=== PATIENT | male | born 1990 | race Caucasian/White ===

== ENCOUNTER → 2017-09-16 | Outpatient (CLI) | payer BC ==
[~2017-09-16] MED LIST: NORCO 325 MG-51 TAB PO; ZOFRAN ODT4 MG PO
== END ==
LOC: COL.RAD 07:30
DX: M47.812 Spondylosis without myelopathy or radiculopathy, cervical region (principal)

== ENCOUNTER → 2017-10-04 | Outpatient (CLI) | payer BC | LOC: MHCPAIN 08:25 | DX: G89.29 Other chronic pain (principal); M54.12 Radiculopathy, cervical region; M47.812 Spondylosis without myelopathy or radiculopathy, cervical region; R51 Headache; F17.220 Nicotine dependence, chewing tobacco, uncomplicated | CPT/HCPCS: G0463 ==

== ENCOUNTER → 2017-11-23 | Outpatient (CLI) | payer BC | LOC: MHCPAIN 09:55 | DX: G89.29 Other chronic pain (principal); M50.121 Cervical disc disorder at C4-C5 level with radiculopathy; F17.220 Nicotine dependence, chewing tobacco, uncomplicated | CPT/HCPCS: G0463 ==

== ENCOUNTER → 2018-01-09 | Outpatient (CLI) | payer BC | LOC: MHCPAIN 11:18 | DX: G89.29 Other chronic pain (principal); M50.321 Other cervical disc degeneration at C4-C5 level; M54.12 Radiculopathy, cervical region; R51 Headache | CPT/HCPCS: G0463 ==

== ENCOUNTER 2018-01-16 11:30 | Outpatient (RCR) | payer BC | END 2018-01-19 | disposition home or self-care (01) | LOC: MKS.ESL.PT | DX: M54.12 Radiculopathy, cervical region (principal); M47.812 Spondylosis without myelopathy or radiculopathy, cervical region; G89.29 Other chronic pain; R51 Headache; Z88.0 Allergy status to penicillin ==

== ENCOUNTER → 2018-02-02 | Outpatient (CLI) | payer BC | LOC: MHCPAIN 11:01 | DX: M54.12 Radiculopathy, cervical region (principal) | CPT/HCPCS: J1100; J2250; J3010; Q9967 ==

== ENCOUNTER → 2018-02-08 | Outpatient (CLI) | payer BC | LOC: MHCPAIN 14:42 | DX: M54.12 Radiculopathy, cervical region (principal) | CPT/HCPCS: J1100; J2250; J3010; Q9967 ==

== ENCOUNTER → 2018-03-08 | Outpatient (CLI) | payer BC | LOC: MHCPAIN 08:42 | DX: G89.29 Other chronic pain (principal); M50.90 Cervical disc disorder, unspecified, unspecified cervical region; M54.12 Radiculopathy, cervical region; R51 Headache | CPT/HCPCS: G0463 ==

== ENCOUNTER → 2018-06-07 | Outpatient (CLI) | payer BC | LOC: MHCPAIN 08:17 | DX: G89.29 Other chronic pain (principal); M50.321 Other cervical disc degeneration at C4-C5 level; M54.12 Radiculopathy, cervical region | CPT/HCPCS: G0463 ==

== ENCOUNTER → 2019-10-25 | Outpatient (CLI) | payer BC | LOC: COL.RAD 10-23 07:30 | DX: G43.909 Migraine, unspecified, not intractable, without status migrainosus (principal) ==

== ENCOUNTER 2021-11-23 15:44 | Emergency (ER) | payer BC ==
[~2021-11-23] VITALS: Ht 162.6 cm; Wt 95.5 kg
[2021-11-23 16:23] VITALS: BP 118/70; TEMP 99.5
[2021-11-23] MEDS ORDERED: EMGALITY120 MG/1 M SQ (16:53)
[2021-11-23] MEDS ORDERED: FLEXERIL 1010 MG/TAB PO (16:53)
[2021-11-23 17:04] LABS: BASO % 0.3 % (0.0-2.0); EOS % 0.1 % (0.0-4.0); GRAN # 8.9 K/mm3 (1.4-6.5); GRAN % 84.8 % (42.2-75.2); HEMATOCRIT 47.8 % (42.0-52.0); HEMOGLOBIN 17.6 g/dl (13.5-18.0); LYMPH # 0.7 K/mm3 (1.2-3.4); LYMPH % 6.8 % (20.0-51.0); MEAN CELL VOLUME 85 fl (80.0-100.0); MEAN CORPUSCULAR HEMOGLOBIN 31 pg (27-31); MEAN CORPUSCULAR HGB CONC 37 g/dl (33.0-37.0); MEAN PLATELET VOLUME 9.7 fl (7.4-10.4); MONO # 0.8 K/mm3 (0.1-0.6); MONO % 7.4 % (1.7-9.3); PLATELET COUNT 311 K/mm3 (130-400); RED BLOOD COUNT 5.65 M/mm3 (4.20-5.60)
[2021-11-23 17:18] LABS: BILIRUBIN,TOTAL 0.8 mg/dL (0.2-1.2); CALCIUM 8.8 mg/dL (8.4-10.2); CREATININE, serum 1.05 mg/dL (0.72-1.25); POTASSIUM 4.4 mmol/L (3.5-4.5); TOTAL PROTEIN 7.2 gm/dL (6.2-8.1)
[2021-11-23] MEDS ORDERED: ZOFRAN ODT4 MG PO (18:18)
[2021-11-23 18:35] VITALS: PULSE 112
== END 2021-11-23 18:35 | disposition home or self-care (01) ==
LOC: COL.ER 15:44
PROVIDERS: Physician Assistant
DX: B34.9 Viral infection, unspecified (principal); G43.909 Migraine, unspecified, not intractable, without status migrainosus; Z79.899 Other long term (current) drug therapy; Z20.822 Contact with and (suspected) exposure to COVID-19
CPT/HCPCS: J2405; J7030

== ENCOUNTER → 2023-09-12 | Outpatient (CLI) | payer BC ==
[~2023-09-12] MED LIST changes: +EMGALITY120 MG/1 M SQ; +FLEXERIL 1010 MG/TAB PO
== END ==
LOC: COL.RAD 09:45
DX: M25.871 Other specified joint disorders, right ankle and foot (principal)